=== PATIENT | male | born 1970 | race Two or more races ===

== ENCOUNTER 2019-05-04 12:21 | Inpatient (IN) | payer MEDICAID ==
[~2019-05-04] VITALS: Ht 172.7 cm; Wt 76.7 kg
[2019-05-04] MEDS ORDERED: SODIUM CHLORIDE 0.9% 1,000 ML IV ONE ×2 (14:22→15:41)
[2019-05-04] MEDS ORDERED: LORAZEPAM 1MG TABLET PO ONE (14:30)
[2019-05-04] MEDS ORDERED: LORAZEPAM 2MG/ML CPJ IV ONE ×2 (14:45→21:15)
[2019-05-04 15:26] LABS: BASOPHILS % 0.3 % (0.0-2.0); CHLORIDE 113 mEq/L (98-107); HEMATOCRIT. 35.4 % (42.0-52.0); HEMOGLOBIN. 11.4 g/dL (14.0-18.0); LYMPHOCYTES % 11.7 % (20.0-50.0); MEAN CORPUSCULAR HEMOGLOBIN 27.6 pg (28.0-32.0); MEAN CORPUSCULAR VOLUME 85.7 fL (80.0-94.0); MEAN PLATELET VOLUME 7.3 fl (7.4-10.4); MONOCYTES % 3.8 % (2.0-8.0); NEUTROPHILS % 84.2 % (40.0-76.0); PLATELET 351 x1000/uL (130-400); PROTHROMBIN TIME 10.8 sec (9.6-11.0); RED BLOOD CELL COUNT 4.13 mill/uL (4.7-6.1); RED CELL DISTRIBUTION WIDTH 14.3 % (11.6-14.6)
[2019-05-04 15:48] LABS: CARBAMAZEPINE 18.6 ug/mL (4-12)
[2019-05-04 15:57] LABS: CLARITY URINE CLOUDY (CLEAR); COLOR URINE DARK YELLOW (YELLOW); KETONES URINE TRACE (NEGATIVE); LEUKOCYTE ESTERASE URINE TRACE (NEGATIVE); NITRITE URINE NEGATIVE (NEGATIVE); OCCULT BLOOD URINE 1+ (NEGATIVE); PROTEIN URINE 3+ (NEGATIVE); SPECIFIC GRAVITY URINE 1.027 (1.005-1.030); UROBILINOGEN URINE 0.2 E.U./dL (0.2-1.0)
[2019-05-04] MEDS ORDERED: CEFTRIAXONE 1 G PREMIX 50 ML IV ONE (17:15)
[2019-05-04] MEDS ORDERED: DIPHENHYDRAMINE 50MG/ML VIAL IV ONE (21:15)
[2019-05-04] MEDS ORDERED: METOPROLOL TARTRATE 100MG TABLET PO NR (22:45)
[2019-05-05] MEDS: LORAZEPAM 2MG/ML CPJ IV PRN ×2 (05:22→17:12)
[2019-05-05] MEDS ORDERED: ONDANSETRON HCL 4MG/2ML INJ IV PRN (10:00)
[2019-05-05] MEDS ORDERED: IPRATROPIUM/ALBUTEROL 0.5-3(2.5)MG/3ML NEB HHN PRN (10:00)
[2019-05-05] MEDS ORDERED: ACETAMINOPHEN 325MG TABLET PO PRN (10:00)
[2019-05-05] MEDS: METOPROLOL TARTRATE 100MG TABLET PO SCH ×2 (10:29→20:40)
[2019-05-05] MEDS: AZITHROMYCIN 500 MG TABLET PO SCH (10:30)
[2019-05-05] MEDS: DEXT 5%/0.45% NACL 1000ML 1,000 ML IV SCH ×2 (10:33→20:40)
[2019-05-05] MEDS: DIPHENHYDRAMINE 50MG/ML VIAL IV PRN ×2 (12:49→23:11)
[2019-05-05] MEDS ORDERED: LAMICTAL 200 MG PO SCH (13:30)
[2019-05-05] MEDS: IPRATROPIUM/ALBUTEROL 0.5-3(2.5)MG/3ML NEB HHN SCH ×2 (15:56→20:35)
[2019-05-05 16:00] VITALS: BP 133/95
[2019-05-05 16:27] VITALS: BP 133/95
[2019-05-05] MEDS ORDERED: CEFTRIAXONE 1 G PREMIX 50 ML IV SCH ×2 (18:00→20:00)
[2019-05-05 20:00] VITALS: BP 121/84
[2019-05-05 20:09] LABS: T4 FREE 0.79 ng/dL (0.76-1.46)
[2019-05-05 20:22] LABS: FOLIC ACID (FOLATE) SERUM >20 ng/mL ng/mL (>5.38)
[2019-05-05 20:33] LABS: VITAMIN B12 SERUM 1934 pg/mL (211-911)
[2019-05-06] VITALS: BP 148/101
[2019-05-06] MEDS: LORAZEPAM 2MG/ML CPJ IV PRN ×2 (00:43→09:00)
[2019-05-06] MEDS: ACETYLCYSTEINE 100MG/ML 10% VIAL 4ML INH SCH ×3 (00:44→16:36)
[2019-05-06] MEDS: IPRATROPIUM/ALBUTEROL 0.5-3(2.5)MG/3ML NEB HHN SCH ×5 (00:44→16:35)
[2019-05-06 04:00] VITALS: BP 126/86
[2019-05-06 08:00] VITALS: BP 137/99
[2019-05-06] MEDS: DIPHENHYDRAMINE 50MG/ML VIAL IV PRN (09:00)
[2019-05-06] MEDS: METOPROLOL TARTRATE 100MG TABLET PO SCH (11:02)
[2019-05-06] MEDS: AZITHROMYCIN 500 MG TABLET PO SCH (11:03)
[2019-05-06 12:00] VITALS: BP 141/86
[2019-05-06 15:46] LABS: BASOPHILS % 0.2 % (0.0-2.0); HEMATOCRIT. 32.5 % (42.0-52.0); HEMOGLOBIN. 10.9 g/dL (14.0-18.0); LYMPHOCYTES % 16.4 % (20.0-50.0); MEAN CORPUSCULAR HEMOGLOBIN 28.6 pg (28.0-32.0); MEAN CORPUSCULAR VOLUME 85.4 fL (80.0-94.0); MEAN PLATELET VOLUME 7.3 fl (7.4-10.4); MONOCYTES % 6.8 % (2.0-8.0); NEUTROPHILS % 76.6 % (40.0-76.0); PLATELET 419 x1000/uL (130-400); RED CELL DISTRIBUTION WIDTH 13.8 % (11.6-14.6)
[2019-05-06 16:00] VITALS: BP 153/98
[2019-05-06] MEDS ORDERED: POTASSIUM CHLORIDE 20MEQ/PACKET PO SCH (19:00)
[2019-05-06 19:45] VITALS: BP 131/90
[2019-05-06] MEDS ORDERED: CARBAMAZEPINE 200MG TABLET PO SCH (21:00)
== END 2019-05-06 20:40 | disposition home health service (06) | DRG 812 ==
LOC: ER 12:29 → 5WST 17:11 → EDBEDREQTM 17:18 → EDBEDREQ 17:18 → ENRESERV 05-05 14:51 → 5WST 05-05 16:35
PROVIDERS: ADMIT Internal Medicine; ATTEND Internal Medicine
DX: T42.1X1A Poisoning by iminostilbenes, accidental (unintentional), initial encounter (principal); J96.00 Acute respiratory failure, unspecified whether with hypoxia or hypercapnia; G92 Toxic encephalopathy; E44.0 Moderate protein-calorie malnutrition; E87.0 Hyperosmolality and hypernatremia; D64.9 Anemia, unspecified; E86.0 Dehydration; N17.9 Acute kidney failure, unspecified; E87.8 Other disorders of electrolyte and fluid balance, not elsewhere classified; R62.7 Adult failure to thrive; F79 Unspecified intellectual disabilities; G40.909 Epilepsy, unspecified, not intractable, without status epilepticus; G80.9 Cerebral palsy, unspecified; I12.9 Hypertensive chronic kidney disease with stage 1 through stage 4 chronic kidney disease, or unspecified chronic kidney disease; N18.9 Chronic kidney disease, unspecified; N39.0 Urinary tract infection, site not specified; J06.9 Acute upper respiratory infection, unspecified; Y92.89 Other specified places as the place of occurrence of the external cause; Z68.25 Body mass index [BMI] 25.0-25.9, adult; Z88.6 Allergy status to analgesic agent
CPT/HCPCS: 36415; 71045; 80048; 80053; 80156; 81003; 82140; 82542; 82607; 82746; 82962; 83036; 83605; 83880; 84145; 84439; 84443; 84481; 84484; 85025; 87804; 93005; 93970; 94640; 99291; C1893; J0696; J1200; J2060; J7030; J7608

== ENCOUNTER 2023-01-21 11:19 | Inpatient (IN) | payer OTHER ==
[~2023-01-21] VITALS: Ht 180.3 cm; Wt 81.6 kg
[~2023-01-21 11:19] MED LIST: ATOR40TA70 PO; CARB200T6 PO; LAMO200T31 PO; LEVO25CA4 PO; METO100T16 PO
[2023-01-21 14:48] LABS: BASOPHILS % 0.1 % (0.0-2.0); HEMATOCRIT. 23.7 % (42.0-52.0); HEMOGLOBIN. 7.8 g/dL (14.0-18.0); LYMPHOCYTES % 11.1 % (20.0-50.0); MEAN CORPUSCULAR VOLUME 84.8 fL (80.0-94.0); MEAN PLATELET VOLUME 6.6 fl (7.4-10.4); MONOCYTES % 8.6 % (2.0-8.0); NEUTROPHILS % 80.2 % (40.0-76.0); PLATELET 282 x1000/uL (130-400); RED BLOOD CELL COUNT 2.79 mill/uL (4.7-6.1); RED CELL DISTRIBUTION WIDTH 14.6 % (11.6-14.6); WHITE BLOOD COUNT 9.9 x1000/uL (4.5-11.0)
[2023-01-21 15:02] LABS: INDEX HEMOLYSI 1 (1-3); INDEX ICTERIC 1 (1-4); INDEX LIPEMIC 1 (1-3); POTASSIUM 4.5 mEq/L (3.5-5.1); SODIUM 141 mEq/L (136-145)
[2023-01-21 15:08] LABS: ALANINE AMINOTRANSFERASE 125 IU/L (13-61); ALBUMIN 2.5 g/dL (3.4-5.0); ASPARTATE AMINOTRANSFERASE 85 IU/L (15-37); BILIRUBIN TOTAL 0.5 mg/dL (0.1-1.0); CALCIUM 8.2 mg/dL (8.5-10.1); GLUCOSE 101 mg/dL (70-105); PROTEIN TOTAL 8.4 g/dL (6.0-8.3)
[2023-01-21 15:26] LABS: UREA NITROGEN BLOOD 81 mg/dL (7-21)
[2023-01-21 15:27] LABS: CREATININE 12.3 mg/dL (0.6-1.3)
[2023-01-21 15:29] LABS: CARBON DIOXIDE 18 mEq/L (21-32); CHLORIDE 108 mEq/L (98-107)
[2023-01-21 17:14] VITALS: BP 161/101; PULSE 106; RESP 19; TEMP 99.5
[2023-01-21 17:40] VITALS: BP 161/101; PULSE 106; RESP 20; TEMP 99.1
[2023-01-21] MEDS ORDERED: EPOETIN ALFA 4000UNITS/ML VIAL SUBCUT SCH (21:00)
[2023-01-21] MEDS ORDERED: CLONIDINE 0.1MG TABLET PO PRN (21:30)
[2023-01-22] VITALS (16 sets, daily range): BP systolic 93–140; BP diastolic 66–96; PULSE 79–111; RESP 16–20; TEMP 97.1–99.9; O2SAT 95
[2023-01-22 07:08] LABS: BASOPHILS % 0.2 % (0.0-2.0); HEMATOCRIT. 25.7 % (42.0-52.0); HEMOGLOBIN. 8.5 g/dL (14.0-18.0); LYMPHOCYTES % 15.9 % (20.0-50.0); MEAN CORPUSCULAR VOLUME 87.9 fL (80.0-94.0); MONOCYTES % 9.9 % (2.0-8.0); PLATELET 262 x1000/uL (130-400); RED BLOOD CELL COUNT 2.92 mill/uL (4.7-6.1); RED CELL DISTRIBUTION WIDTH 15.5 % (11.6-14.6); WHITE BLOOD COUNT 8.8 x1000/uL (4.5-11.0)
[2023-01-22 07:16] LABS: POTASSIUM 5.1 mEq/L (3.5-5.1)
[2023-01-22] MEDS ORDERED: LEVOTHYROXINE SODIUM 25MCG TABLET PO SCH (07:20)
[2023-01-22 07:21] LABS: CALCIUM 8.5 mg/dL (8.5-10.1)
[2023-01-22 07:26] LABS: CREATININE 13.7 mg/dL (0.6-1.3)
[2023-01-22] MEDS ORDERED: METOPROLOL TARTRATE 100MG TABLET PO SCH (09:00)
[2023-01-22] MEDS: LAMOTRIGINE 100MG TABLET PO SCH ×2 (09:01→21:00)
[2023-01-22] MEDS: CARBAMAZEPINE 200MG TABLET PO SCH ×3 (09:01→17:00)
[2023-01-22] MEDS ORDERED: ATORVASTATIN CALCIUM 40MG TABLET PO SCH (21:00)
== END 2023-01-22 23:26 | disposition home or self-care (01) | DRG 470 ==
LOC: ER 11:19 → EDBEDREQ 15:51 → EDBEDREQTM 15:51 → 6EST 17:06
PROVIDERS: ADMIT Internal Medicine; ATTEND Internal Medicine
PROC: 5A1D70Z Performance of Urinary Filtration, Intermittent, Less than 6 Hours Per Day (ICD-10-PCS; principal; 2023-01-22)
DX: I12.0 Hypertensive chronic kidney disease with stage 5 chronic kidney disease or end stage renal disease (principal); N18.6 End stage renal disease; D64.9 Anemia, unspecified; G40.909 Epilepsy, unspecified, not intractable, without status epilepticus; G80.9 Cerebral palsy, unspecified; Z99.2 Dependence on renal dialysis; Z86.16 Personal history of COVID-19; Z88.6 Allergy status to analgesic agent
CPT/HCPCS: 36415; 80048; 80053; 85025; 90935; 99285; J0885

== ENCOUNTER 2023-04-25 18:31 | Emergency (ER) | payer OTHER ==
[~2023-04-25] VITALS: Ht 177.8 cm; Wt 59.0 kg
[2023-04-25 18:55] VITALS: BP 126/98; PULSE 105; RESP 16; TEMP 98.8; O2SAT 97
== END 2023-04-26 00:03 | disposition left against medical advice (07) ==
LOC: ER 18:31
DX: M54.50 Low back pain, unspecified (principal); Z53.21 Procedure and treatment not carried out due to patient leaving prior to being seen by health care provider
CPT/HCPCS: 99281